=== PATIENT | male | born 2000 | race Two or more races ===

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

== ENCOUNTER 2019-07-02 18:28 | Emergency (ER) | payer OTHER ==
[2019-07-02] MEDS ORDERED: IBUPROFEN 600 MG TABLET PO ONE ×2 (19:00→19:07)
[2019-07-02] MEDS ORDERED: HYDROCODONE/APAP 5/325MG 1 EACH TABLET PO ONE (19:00)
[2019-07-02] MEDS ORDERED: HYDROCODONE/APAP 5/325MG 1 EACH TABLET ONE (19:07)
== END 2019-07-02 19:59 | disposition home or self-care (01) ==
DX: S53.492A Other sprain of left elbow, initial encounter (principal); J45.909 Unspecified asthma, uncomplicated; V00.131A Fall from skateboard, initial encounter; Y93.51 Activity, roller skating (inline) and skateboarding; Y92.89 Other specified places as the place of occurrence of the external cause; Y99.8 Other external cause status

== ENCOUNTER 2020-01-10 19:58 | Emergency (ER) | payer MEDICAID, OTHER ==
[~2020-01-10] VITALS: Ht 175.3 cm; Wt 70.3 kg
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
--- NOTE | 2020-01-10 20:20 | NUR ---
XRAY AT BEDSIDE
[2020-01-10] MEDS ORDERED: IBUPROFEN 400 MG TABLET PO ONE (20:30)
[2020-01-10] MEDS ORDERED: IBUPROFEN 400 MG TABLET ONE (20:31)
--- NOTE | 2020-01-10 20:35 | NUR ---
Patient discharged to home in stable condition. Written and verbal after care instructions given. Patient verbalizes understanding of instruction and RX. Pt given ortho boot, placed by EMT. Ambulated with steady gait. VSS.
[2020-01-10 20:36] VITALS: BP 122/63
== END 2020-01-10 20:42 | disposition home or self-care (01) ==
LOC: ER 20:00
DX: S97.112A Crushing injury of left great toe, initial encounter (principal); J45.909 Unspecified asthma, uncomplicated; W22.8XXA Striking against or struck by other objects, initial encounter; Y93.53 Activity, golf; Y92.39 Other specified sports and athletic area as the place of occurrence of the external cause; Y99.8 Other external cause status
CPT/HCPCS: 73630-TC

== ENCOUNTER 2021-01-30 13:40 | Emergency (ER) | payer MEDICAID ==
[~2021-01-30] VITALS: Ht 167.6 cm; Wt 61.2 kg
--- NOTE | 2021-01-30 13:50 | NUR ---
The patient bibs for c/o left sided neck pain since this morning. The patient rates pain 8/10. Denies any numbess/tingling anywhere. Respiration regular and unlabored. In room air and denies SOB. The patient is alert and oriented x4. Warm blanket provided for comfort. Will continue to monitor.
[2021-01-30] MEDS ORDERED: IBUP-1957 PO (14:11)
[2021-01-30] MEDS ORDERED: CYCL10TA9 PO (14:11)
--- NOTE | 2021-01-30 14:28 | NUR ---
Patient discharged to home in stable condition. Written and verbal after care instructions given. Patient verbalizes understanding of instruction. The patient left ER in stable condition.
[2021-01-30 14:29] VITALS: BP 131/82
== END 2021-01-30 14:29 | disposition home or self-care (01) ==
LOC: ER 13:45
DX: M62.838 Other muscle spasm (principal); J45.909 Unspecified asthma, uncomplicated